=== PATIENT | female | born 2000 ===

== ENCOUNTER 2023-10-11 18:25 | Emergency (ER) ==
[~2023-10-11] VITALS: Ht 167.6 cm; Wt 133.5 kg
[2023-10-11 18:26] VITALS: BP 109/58; TEMP 97.4; O2SAT 98
[2023-10-11] MEDS ORDERED: FERR325T3 PO (18:42)
[2023-10-11] MEDS ORDERED: FLUT12AE2 IH (18:42)
[2023-10-11] MEDS ORDERED: MONT10TA97 PO (18:42)
[2023-10-11] MEDS ORDERED: CETI10CH PO (18:42)
[2023-10-11] MEDS ORDERED: RA N1TAB PO (18:42)
[2023-10-11] MEDS ORDERED: NOXI1TAB PO (18:42)
[2023-10-11] MEDS ORDERED: VENTAER INH (18:42)
== END 2023-10-11 20:04 | disposition left against medical advice (07) ==
LOC: M ED 18:25
DX: Z53.21 Procedure and treatment not carried out due to patient leaving prior to being seen by health care provider (principal)